=== PATIENT | male | born 1985 | race Caucasian/White ===

== ENCOUNTER 2016-08-16 11:30 | Emergency (ER) | payer OTHER ==
[2016-08-16 11:57] VITALS: BP 134/101
[2016-08-16] MEDS ORDERED: DUONEB (A & A) INH ONE (13:57)
[2016-08-16] MEDS ORDERED: DECADRON IM ONE (13:57)
--- NOTE | 2016-08-16 13:59 | PROVIDER DOCUMENTATION ---
HPI-EENT General - General Chief Complaint: Sore Throat Stated Complaint: SORE THROAT,COUGHING,CONGESTED Time Seen by Provider: 08/16/16 13:52 Source: patient Allergies/Adverse Reactions: Patient Allergies Allergy/AdvReac Type Severity Reaction Status Date / Time azithromycin Allergy Severe ANPHYLAXIS Verified 07/07/16 08:14 tramadol HCl * [From Ultram] Allergy Mild RED EYES Verified 07/07/16 08:14 AND SINUS DRAINAGE Home Medications: Home Medication List Medication Instructions Recorded Confirmed Last Taken Type Acetaminophen with Codeine 1 each PO Q6H PRN PRN #14 tablet 07/07/16 Unknown Rx [Tylenol with Codeine #3 Tablet] Amoxicillin [Amoxil] 500 mg PO BID #20 capsule 08/16/16 Unknown Rx Prednisone [Deltasone] 20 mg PO DIRECTED #12 tablet 08/16/16 Unknown Rx - History of Present Illness-EENT General Nature of Presenting Problem: 31 y/o WM c/o cough, congestion and sore throat. States he was dx with strep 1 month ago and hasn't gotten better since then. Also wanting chantix to help stop smoking. Reports sob and wheezing, smokes 1 ppd. Denies abdominal pain, n/v /d. No pre-arrival treatments. Review of Systems - Adult - REVIEW OF SYSTEMS - ADULT Constitutional: reports: see HPI, fatique. denies: chills, fever Eyes: reports: no symptoms reported. denies: decreased vision, blurred vision, double vision, eye pain Ears, Nose, Mouth & Throat: reports: see HPI, ear pain, nose pain, throat pain Cardiovascular: reports: no symptoms reported. denies: chest pain, palpitations Respiratory: reports: see HPI, cough, wheezing. denies: shortness of breath Gastrointestinal: reports: no symptoms reported. denies: abdominal pain, diarrhea, nausea, vomiting Genitourinary: reports: no symptoms reported Musculoskeletal: reports: no symptoms reported. denies: bone pain, back pain, muscle aches Integumentary: reports: no symptoms reported. denies: rash Neurological: reports: no symptoms reported. denies: headache/migraines Psychiatric: reports: no symptoms reported Endocrine: reports: no symptoms reported Hematologic/Lymphatic: reports: no symptoms reported Allergic/Immunologic: reports: no symptoms reported All Other Systems: Reviewed and Negative Past History - Adult - PAST MEDICAL HISTORY-ADULT Review of Records: reports: Old Records Reviewed, Nursing Assessment Review, Medications Reviewed Major Childhood Illnesses: reports: denies history Cardiovascular: reports: denies history Respiratory: reports: sleep apnea (dx @ age 19) Gastrointestinal: reports: denies history Genitourinary: reports: denies history Musculoskeletal: reports: denies history Neurological: reports: denies history Psychiatric: reports: bipolar, other (terets, schizo-affective disorder) Endocrine/Immune: reports: denies history Other Conditions: reports: denies history - IMMUNIZATION STATUS Childhood Immunizations: See Nurse Assessment Flu Vaccine: See Nurse Assessment - FAMILY HISTORY Family History: reviewed, not pertinent - SOCIAL HISTORY Smoking: greater than 1 pack/day Provider spent 3-5 mins advising pt. on dangers of tobacco.: Discussed manners to quit use, and f/u contacts for add'l counseling. Substance Use: none/never Alcohol Use Frequency: never Physical Exam- EENT - Physical Exam EENT Initial Vital Signs Reviewed: Yes General Appearance: appears well, alert, no apparent distress Eye Exam: bilateral eye: normal inspection, PERRL, EOMI Ear Exam: bilateral ear: auricle normal, canal normal, TM normal Nasal Exam: normal inspection Throat Exam: normal mouth inspection, pharynx normal Neck: non-tender, full range of motion, supple, normal inspection. negative: lymphadenopathy Respiratory: chest non-tender, no pleuratic chest pain, no respiratory distress , no accessory muscle use, wheezing (slight ezpiraoty wheeze) Cardiovascular: normal peripheral pulses, regular rate, rhythm Extremity: non-tender, normal gait Integumentary: normal color, normal turgor, warm/dry Neurologic: grossly normal, no motor/sensory deficits Psych/Mental Status: normal mood/affect, normal thought content, normal thought process, oriented x 3 Progress - PLAN OF CARE/RESULTS Progress/Plan/Lab Results: Vital Signs Temp Pulse Resp BP Pulse Ox 08/16/16 11:55 97.7 F 82 18 134/101 100 azithromycin Allergy (Severe, Verified 07/07/16 08:14) ANPHYLAXIS tramadol HCl * [From Ultram] Allergy (Mild, Verified 07/07/16 08:14) RED EYES AND SINUS DRAINAGE Acetaminophen with Codeine [Tylenol with Codeine #3 Tablet] 1 each PO Q6H PRN PRN #14 tablet 07/07/16 Amoxicillin [Amoxil] 500 mg PO BID #20 capsule 08/16/16 Prednisone [Deltasone] 20 mg PO DIRECTED #12 tablet 08/16/16 Orders Category Date Time Status DIRECT STREP Stat Lab 08/16/16 12:00 Completed Albuterol 2.5MG/Ipratrop 0.5MG [Duoneb (A & A)] Med 08/16/16 13:57 Discontinued 3 ml INH NOW ONE Dexamethasone [Decadron] Med 08/16/16 13:57 Discontinued 10 mg IM NOW ONE Aerosol Treatments Routine Oth 08/16/16 13:57 Active Aerosol Treatments Stat Oth 08/16/16 13:57 Active Departure - Departure Time of Disposition Order: 13:58 DIAGNOSIS: URI, acute Disposition: HOME 01 Certified Medical Emergency: Emergent Condition: Stable Additional Instructions: 1 800 QUIT NOW for assistance with tobaccos cessation ED Follow Up Instructions: You have been treated by a care provider in the Emergency Department. These instructions are being provided to you so you can have an understanding of how to care for yourself upon discharge. Upon discharge from the Emergency Department, you are responsible for making arrangements for follow-up care by a physician of your choice. Take all prescribed medications as directed. Return to the Emergency Department immediately for any new or worsening symptoms. You may call the Physician Referral phone number at [phone] to obtain a list of Physicians who are taking new patients. Prescriptions: Amoxicillin [Amoxil] 500 mg PO BID #20 capsule Prednisone [Deltasone] 20 mg PO DIRECTED #12 tablet Referrals: None,PCP [Primary Care Provider] -
== END 2016-08-16 14:34 | disposition home or self-care (01) ==
LOC: ED 11:30
DX: J06.9 Acute upper respiratory infection, unspecified (principal); J02.9 Acute pharyngitis, unspecified; R05 Cough; R09.81 Nasal congestion; R06.02 Shortness of breath; R06.2 Wheezing; R53.83 Other fatigue; H92.09 Otalgia, unspecified ear; J34.89 Other specified disorders of nose and nasal sinuses; F17.210 Nicotine dependence, cigarettes, uncomplicated; Z71.6 Tobacco abuse counseling
CPT/HCPCS: 87081; 87430; 94640; 94761; 96372